=== PATIENT | male | born 1955 | race Caucasian/White ===

== ENCOUNTER 2020-11-01 18:20 | Emergency (ER) | payer MEDICARE, OTHER | END 2020-11-01 19:15 | disposition admitted as inpatient to this hospital (09) | LOC: ER1 18:20 | DX: I21.3 ST elevation (STEMI) myocardial infarction of unspecified site (principal); I25.10 Atherosclerotic heart disease of native coronary artery without angina pectoris; I48.91 Unspecified atrial fibrillation; I46.9 Cardiac arrest, cause unspecified; Z20.822 Contact with and (suspected) exposure to COVID-19 | CPT/HCPCS: 82803; 87635; 92950; 99285; C1769; J0171; J0282; J7040 ==